=== PATIENT | female | born 1985 | race Caucasian/White ===

== ENCOUNTER 2024-12-06 07:24 | Day surgery (SDC) | payer BC ==
[~2024-12-06 07:24] MED LIST: Sodium Chloride 0.9% 10 ML Syringe FLUSH PRN; Sodium Chloride 0.9% 10 ML Syringe FLUSH SCH
[2024-12-06] MEDS: Lactated Ringers 1,000 ML IV SCH (07:40)
[2024-12-06 08:00] LABS: BASOPHILS PERCENT AUTO 0.7 % (0.0-1.0); EOSINOPHILS ABSOLUTE AUTO 0.1 K/mm3 (0.0-0.4); EOSINOPHILS PERCENT AUTO 1.3 % (0.0-6.0); HEMATOCRIT 40.4 % (37.0-47.0); HEMOGLOBIN 13.7 gm/dl (12.0-16.0); IMMATURE GRAN ABSOLUTE AUTO 0.03 K/mm3 (0.00-0.05); IMMATURE GRAN PERCENT AUTO 0.5 % (0.0-0.4); LYMPHOCYTES ABSOLUTE AUTO 2.2 K/mm3 (1.0-4.8); MEAN CORPUSCULAR HEMOGLOBIN 30.9 pg (28.0-32.0); MEAN CORPUSCULAR HGB CONC 33.9 g/dl (32.0-36.0); MEAN CORPUSCULAR VOLUME 91.2 fl (83.0-99.0); MEAN PLATELET VOLUME 9.4 fl (9.4-12.3); MONOCYTES ABSOLUTE AUTO 0.4 K/mm3 (0.0-0.8); MONOCYTES PERCENT AUTO 7.8 % (0.0-8.0); NEUTROPHILS ABSOLUTE AUTO 2.7 K/mm3 (1.8-7.7); NEUTROPHILS PERCENT AUTO 49.7 % (41.0-71.0); PLATELET COUNT,PLT 329 K/mm3 (150-400); RED BLOOD CELL COUNT 4.43 M/mm3 (4.10-5.30)
[2024-12-06] MEDS ORDERED: ceFAZolin 2 GM Vial ONE (08:00)
[2024-12-06] MEDS ORDERED: Rocuronium 50 MG/5 ML Vial ONE (08:10)
[2024-12-06] MEDS ORDERED: Dexamethasone 4 MG/ML 5 ML MDV ONE (08:10)
[2024-12-06] MEDS ORDERED: Ondansetron 4 MG/2 ML SDV ONE (08:10)
[2024-12-06] MEDS ORDERED: dexmedeTOMIDine HCl 200 MCG/2 ML SDV ONE (08:10)
[2024-12-06] MEDS ORDERED: Propofol 200 MG/20 ML SDV ONE ×6 (08:11→10:36)
[2024-12-06] MEDS ORDERED: Ketamine 200 MG/20 ML MDV ONE (08:14)
[2024-12-06] MEDS: Acetaminophen 325 MG Tab PO ONE (08:40)
[2024-12-06 08:41] LABS: BUN/CREATININE RATIO 12.5 (14-18); CREATININE 0.8 mg/dL (0.55-1.02); EST CRCL DRUG DOSING (CG) 79.91 mL/min
[2024-12-06] MEDS ORDERED: Ropivacaine 0.5% 5 MG/ML 30 ML SDV ONE (08:44)
[2024-12-06] MEDS ORDERED: Midazolam 1 MG/ML 2 ML SDV ONE (08:59)
[2024-12-06] MEDS ORDERED: Ketorolac 30 MG/ML SDV ONE (09:00)
[2024-12-06] MEDS ORDERED: fentaNYL 250 MCG/5 ML SDV ONE (09:47)
[2024-12-06] MEDS: Bupivacaine 0.5% 30 ML SDV ONE (09:56)
[2024-12-06] MEDS ORDERED: Lactated Ringers 1,000 ML ONE (10:14)
[2024-12-06] MEDS: Lidocaine 1% with EPINEPHrine 1:100,000 20 ML MDV ONE (10:20)
[2024-12-06] MEDS ORDERED: Sugammadex Sodium 200 MG/2 ML VIAL IV ONE (10:48)
[2024-12-06] MEDS: HYDROmorphone 0.5 MG/0.5 ML Syringe IVPUSH PRN (11:23)
[2024-12-06] MEDS: fentaNYL 100 MCG/2 ML SDV IVPUSH PRN (11:34)
[2024-12-06] MEDS: Acetaminophen/oxyCODONE 325-5 MG Tab PO PRN (12:17)
[2024-12-06] MEDS: Ondansetron 4 MG/2 ML SDV IVPUSH PRN (13:56)
[2024-12-06 14:39] VITALS: BP 114/74; PULSE 97
== END 2024-12-06 14:20 | disposition home or self-care (01) ==
LOC: JD.SDS 07:24
PROVIDERS: ATTEND Obstetrics & Gynecology
DX: N80.03 Adenomyosis of the uterus (principal); N72 Inflammatory disease of cervix uteri; I10 Essential (primary) hypertension; E66.9 Obesity, unspecified; Z88.0 Allergy status to penicillin; Z91.09 Other allergy status, other than to drugs and biological substances; Z91.040 Latex allergy status; Z87.891 Personal history of nicotine dependence; Z79.899 Other long term (current) drug therapy
CPT/HCPCS: 36415; 58552; 80048; 81025; 85025; A9270; J0665; J0690; J1100; J1885; J2004; J2250; J2405; J2704; J2795; J3010; J3490; J7120; 00944; 64488